=== PATIENT | male | born 1965 | race Caucasian/White ===

== ENCOUNTER 2025-02-14 15:04 | Outpatient (AMB) | payer OTHER, SELFPAY ==
--- NOTE | 2025-02-14 15:10 | HO.NEPHOV_ITS ---
Vital Signs 02/14/25 15:12 Height 5 ft 8 in Weight 199 lb 2 oz BMI 30.3 BP 110/60 Blood Pressure Location Rt brachial Position Sitting Intake Visit Reasons: ENP- HTN/Hyperkalemia-LVM Substation Supervisor Required: No Accompanied by: Self / Same As Patient Allergies No Known Allergies Allergy (Verified 02/14/25 15:12) HPI Comments Details: René is a 60-year-old gentleman with a history hypertension, status post aortic valve replacement on Coumadin, polycythemia, gout, hypothyroidism was seen in the office for history of hypokalemia, renal cyst and renal calculus. He has history of hematuria in the past. He has been having small voided volumes and increased urinary frequency. He has going to see a urologist soon. His renal functions have been normal. He has been on losartan hydrochlorothiazide, metoprolol for his blood pressure but the hydrochlorothiazide was discontinued when he developed hypokalemia. His serum potassium has normalized now. He was initiated on amlodipine which caused dizziness and low blood pressures forcing it to be discontinued. Imaging done during his recent hospitalization showed renal cysts bilaterally which are too small to characterize. He also had a non obstructing left renal calculus. He currently feels well. [facility] Medical History (Updated 02/14/25 @ 15:39 by Billy Madison MD) Rectal fistula Microscopic hematuria Thyroid nodule Goiter Colon polyps Gilbert syndrome Gallbladder polyp Polycythemia Anemia LVH (left ventricular hypertrophy) Smoking hx Aortic stenosis Hypothyroid IGT (impaired glucose tolerance) GERD (gastroesophageal reflux disease) HLD (hyperlipidemia) Hypertension Surgical History History of artificial heart valve Family History (Updated 02/14/25 @ 15:11 by Sydnie Vega MA) Mother Hypertension Diabetes mellitus Social History (Updated 02/14/25 @ 15:10 by Sydnie Vega MA) Alcohol intake: never Patient Tobacco Use Status: Current everyday Tobacco user Review of Systems Const All systems reviewed & are unremarkable except as noted in HPI and below Physical Exam Const General: comfortable and no acute distress Orientation/consciousness: patient oriented x3 HEENT Other: thyroid enlarged Head: Yes normocephalic Mouth: Normal oral and palatal mucosa present Eyes EOM: EOMs intact bilaterally Neck Neck: Yes supple Resp Auscultation: clear to auscultation bilaterally Cardio Jugular venous distension: no JVD Rate: regular rate Heart sounds: Murmur heart sound present GI Palpation (GI): Soft to palpation Auscultation: normal bowel sounds General: Yes no CVA tenderness Back/Spine/Pelvis Back: no CVA tenderness Skin General skin exam: no rashes or lesions noted Neuro General: patient oriented x3 and moves all extremities Extrem General: Yes no pedal edema Assessment & Plan Assessment & Plan (1) Hypertension: Code(s): I10 - Essential (primary) hypertension Category: Medical Qualifiers: Hypertension type: primary hypertension Qualified Code(s): I10 - Essential (primary) hypertension (2) Microscopic hematuria: Code(s): R31.29 - Other microscopic hematuria Category: Medical (3) Renal stone: Code(s): N20.0 - Calculus of kidney Category: Medical (4) Renal cyst: Code(s): N28.1 - Cyst of kidney, acquired Category: Medical Plan René has longstanding hypertension. He has bilateral renal cysts. He denies any family history of PKD. He has been on losartan and hydrochlorothiazide. His serum potassium was low and his HCTZ was discontinued. His serum potassium is normalized. He is not on any potassium replacement. He has renal calculus. I plan to do a 24 hour urine for stone screen and may reintroduce HCTZ and or potassium citrate based on data. He is seeing Urology. He clearly will need follow-up imaging(I am considering doing a renal MRI in the future). All these have been discussed in detail and I answered all his questions. Follow-up appointment given. Orders: Orders Electrolytes 6 Months I10 - Essential (primary) hypertension, N20.0 - Calculus of kidney, N28.1 - Cyst of kidney, acquired, R31.29 - Other microscopic hematuria Blood Urea Nitrogen 6 Months I10 - Essential (primary) hypertension, N20.0 - Calculus of kidney, N28.1 - Cyst of kidney, acquired, R31.29 - Other microscopic hematuria Creatinine 6 Months I10 - Essential (primary) hypertension, N20.0 - Calculus of kidney, N28.1 - Cyst of kidney, acquired, R31.29 - Other microscopic hematuria UA and rflx microscopic 6 Months I10 - Essential (primary) hypertension, N20.0 - Calculus of kidney, N28.1 - Cyst of kidney, acquired, R31.29 - Other microscopic hematuria Protein Creatinine Ratio, Ur 6 Months I10 - Essential (primary) hypertension, N20.0 - Calculus of kidney, N28.1 - Cyst of kidney, acquired, R31.29 - Other microscopic hematuria Coding Level of Care Code New Pt Level 4 (41563) Diagnoses Primary hypertension I10 Hypertension type: primary hypertension Microscopic hematuria R31.29 Renal stone N20.0 Renal cyst N28.1
[2025-02-14 15:12] VITALS: BP 110/60; BMI 30.3
--- OUTSIDE RECORDS SUMMARY | 2025-02-14 16:48 | XMS_ITS | Encounter Summary ---
Author Organization [facility] Address [address] [place] [address] Care Team Providers Care Small Electric Engine Technician Name Role Phone MellyGurmeet hassan Primary Care Provider [phone] Encounter Details Date Type Department Care Team (Latest Contact Info) Description 08/19/2024 Anticoagulation - Warfarin Visit [facility] - [address] [facility] [address] [place] [address] Tin Anderson MD [address] [place] [address] [place] [phone] Presence of prosthetic heart valve (Primary Dx) Social History Tobacco Use Types Packs/Day Years Used Date Smoking Tobacco: Every Day Smokeless Tobacco: Never Alcohol Use Standard Drinks/Week Comments Yes 0 (1 standard drink = 0.6 oz pur e alcohol) Sex and Gender Information Value Date Recorded Sex Assigned at Not on file Legal Sex Male 11:01 AM EST Gender Identity Not on file Sexual Orientation Not on file documented as of this encounter Plan of Treatment Not on file documented as of this encounter Procedures Procedure Name Priority Date/Time Associated Diagnosis Comments PROTHROMBIN TIME WITH INR Routine 08/19/2024 documented in this encounter Results * Prothrombin time with INR (08/19/2024) INR 4.6 Prothrombin Time POC Blood Venous blood specimen / Unknown 08/19/2024 us Historical Provider LAB BLOOD ORDERABLES Kelsie l Result documented in this encounter Visit Diagnoses Diagnosis Presence of prosthetic heart valve- Primary documented in this encounter Care Teams Small Electric Engine Technician Relationship Specialty Start Date End Date Gurmeet Nance DO [address] [place] [phone] PCP - General 01/30/15 documented as of this encounter
--- OUTSIDE RECORDS SUMMARY | 2025-02-14 16:48 | XMS_ITS | Encounter Summary ---
Author Organization [facility] Address [address] [place] [address] Care Team Providers Care Electro Plater Name Role Phone MellyyobanimannyGurmeet decker Primary Care Provider [phone] Encounter Details Date Type Department Care Team (Latest Contact Info) Description 03/16/2024 Anticoagulation - Warfarin Visit [facility] - [address] [facility] [address] [place] [address] Tin Anderson MD [address] [place] [address] [place] [phone] Presence of prosthetic heart valve (Primary Dx) [...] Diagnosis Comments PROTHROMBIN TIME WITH INR Routine 03/16/2024 documented in this encounter Results * Prothrombin time with INR (03/16/2024) INR 1.4 Prothrombin Time POC Blood Venous blood specimen / Unknown 03/16/2024 us Historical Provider LAB BLOOD ORDERABLES Kelsie l Result documented in this encounter Visit Diagnoses Diagnosis Presence of prosthetic heart valve- Primary documented in this encounter Care Teams Electro Plater Relationship Specialty Start Date End Date Gurmeet Nance DO [address] [place] [phone] PCP - General 01/30/15 documented as of this encounter
--- OUTSIDE RECORDS SUMMARY | 2025-02-14 16:48 | XMS_ITS | Encounter Summary ---
Author Organization [facility] Address [address] [place] [address] Care Team Providers Care Search Engine Optimization Manager Name Role Phone Gurmeet Nance DO Primary Care Provider [phone] Encounter Details Date Type Department Care Team (Latest Contact Info) Description 02/13/2025 Anticoagulation - Warfarin Visit [facility] - [address] [place] [phone] Tin Anderson MD [address] [place] [address] [address] [place] [phone] Presence of prosthetic heart valve (Primary Dx) [...] on file documented as of this encounter Progress Notes * Yanick Vargas MA - 02/13/2025 3:40 PM EST Left voice message with instructions documented in this encounter Plan of Treatment Not on file documented as of this encounter Procedures Procedure Name Priority Date/Time Associated Diagnosis Comments PROTHROMBIN TIME WITH INR Routine 02/13/2025 documented in this encounter Results * Prothrombin time with INR (02/13/2025) INR 3.4 Prothrombin Time POC Blood Venous blood specimen / Unknown 02/13/2025 us Historical Provider LAB BLOOD ORDERABLES Kelsie l Result documented in this encounter Visit Diagnoses Diagnosis Presence of prosthetic heart valve- Primary documented in this encounter Care Teams Search Engine Optimization Manager Relationship Specialty Start Date End Date Gurmeet Nance DO [address] [place] [phone] PCP - General 01/30/15 documented as of this encounter
--- OUTSIDE RECORDS SUMMARY | 2025-02-14 16:48 | XMS_ITS | Encounter Summary ---
Author Organization [facility] Address [address] [place] [address] Care Team Providers Care Oyster Worker Name Role Phone MellyGurmeet hassan Primary Care Provider [phone] Encounter Details Date Type Department Care Team (Late st Contact Info) Description 01/26/2025 Lab Requisition [facility] - Main Lab [address] [facility] [place] [address] Ruben Reed [address] [place] [phone] Urinary tract infection, site not specified; Hematuria, unspecified Social History Tobacco Use Types Packs/Day Years [...] Procedure Name Priority Date/Time Associated Diagnosis Comments URINALYSIS WITH REFLEX MICROSCOPIC Routine 01/26/2025 3:50 PM EDT Urinary tract infection, site not specified Hematuria, unspecified URINALYSIS WITH REFLEX MICROSCOPIC Routine 01/26/2025 3:50 PM EDT Urinary tract infection, site not specified Hematuria, unspecified CULTURE URINE Routine 01/26/2025 3:50 PM EDT Urinary tract infection, site not specified Hematuria, unspecified documented in this encounter Results * (ABNORMAL) Urinalysis with reflex microscopic (01/26/2025 3:50 PM EDT) Specific [place] Urine 1.024 1.003 - 1.030 LAB URINALYSIS - AUTOMATED METHOD 01/26/2025 8:55 PM [facility] pH, Urine 5.5 5.0 - 8.0 pH LAB URINALYSIS - AUTOMATED METHOD 01/26/2025 8:55 PM [facility] Leukocytes, Urine Small(A) Negative LAB URINALYSIS - AUTOMATED METHOD 01/26/2025 8:55 PM [facility] Nitrite, Urine Negative Negative LAB URINALYSIS - AUTOMATED METHOD 01/26/2025 8:55 PM [facility] Protein, Urine 30(A) <=Trace mg/dL LAB URINALYSIS - AUTOMATED METHOD 01/26/2025 8:55 PM [facility] Glucose, Urine Negative Negative mg/dL LAB URINALYSIS - AUTOMATED METHOD 01/26/2025 8:55 PM [facility] Ketones, Urine Trace(A) Negative mg/dL LAB URINALYSIS - AUTOMATED METHOD 01/26/2025 8:55 PM [facility] Urobilinogen, Urine 1.0 0.2 - 1.0 mg/dL LAB URINALYSIS - AUTOMATED METHOD 01/26/2025 8:55 PM [facility] Bilirubin, Urine Small(A) Negative LAB URINALYSIS - AUTOMATED METHOD 01/26/2025 8:55 PM [facility] Blood, Urine Negative Negative LAB URINALYSIS - AUTOMATED METHOD 01/26/2025 8:55 PM [facility] RBC, Urine 3.0 0 - 4 /HPF LAB URINALYSIS - AUTOMATED METHOD 01/26/2025 8:55 PM [facility] Comment:Corrected result: Pr eviously reported as 7.3 /HPF on 01/26/2025 at 2054 EDT. WBC, Urine 6.6(H) 0 - 4 /HPF LAB URINALYSIS - AUTOMATED METHOD 01/26/2025 8:55 PM EDT [facility] Squamous Epithelial, Urine 40 0 - 60 /LPF LAB URINALYSIS - AUTOMATED METHOD 01/26/2025 8:55 PM EDT [facility] Crystals, Urine Heavy Amorphous Urate crystals. /LPF LAB URINALYSIS - AUTOMATED METHOD 01/26/2025 8:55 PM EDT [facility] Bacteria, Urine Many(A) Negative /HPF LAB URINALYSIS - AUTOMATED METHOD 01/26/2025 8:55 PM EDT [facility] Hyaline Casts, Urine 4.0(H) 0 - 3 /LPF LAB URINALYSIS - AUTOMATED METHOD 01/26/2025 8:55 PM EDT [facility] Other Casts, Urine 2-5 Coarse Granular casts. /LPF LAB URINALYSIS - AUTOMATED METHOD 01/26/2025 8:55 PM EDT [facility] Urine Urine specimen obtained by clean catch procedure / Unknown 01/26/2025 3:50 PM EDT 01/26/2025 7:38 PM EDT [facility] Edited Resu lt - Final [facility] [address] [place] [address], [place] [phone] * Culture urine (01/26/2025 3:50 PM EDT) Culture, Urine No growth 01/27/2025 1:38 PM EDT [facility] Urine Urine specimen obtained by clean catch procedure / Unknown 01/26/2025 3:50 PM EDT 01/26/2025 7:38 PM EDT Ruben Sanchez LAB MICROBIOLOGY - GENERAL ORDER PATRICIA Final Result [facility] [address] [place] [address], documented in this encounter Visit Diagnoses Diagnosis Urinary tract infection, site not specified Hematuria, unspecified documented in this encounter Care Teams Oyster Worker Relationship Specialty Start Date End Date Gurmeet Nance DO [address] [place] [phone] PCP - General 01/30/15 documented as of this encounter
--- OUTSIDE RECORDS SUMMARY | 2025-02-14 16:48 | XMS_ITS | Clinical Summary ---
Author Organization [address] [facility] Address [address] [place] [address] Phone Care Team Providers Care Time Clock Mechanic Name Role Phone Gurmeet Nance DO Primary Care Provider [phone] Medications metoprolol succinate (TOPROL-XL) 100 mg 24 hr tablet TAKE 1 TABLET BY MOUTH EVERY DAY 90 tablet 3 5 Active warfarin (COUMADIN) 2.5 mg tablet Take 1 tablet daily as directed by pvca. 90 each 3 5 Active warfarin (COUMADIN) 5 mg tablet Take 1 tablet (5 mg total) by mouth 1 (one) time each day with dinner. 90 tablet 1 5 Active enoxaparin (Lovenox) 100 mg/mL syringe Inject 1 mL (100 mg total) under the skin every 12 (twelve) hours. 10 each 1 5 Active enoxaparin (Lovenox) 100 mg/mL syringe Inject 1 mL (100 mg total) under the skin every 12 (twelve) hours. 10 each 1 5 01/17/20 25 Discontinu ed(Reorder ) Active Problems Problem Noted Date Diagnosed Date Presence of prosthetic heart valve 02/23/2024 Encounters Date Type Department Care Team Description 02/13/2025 Anticoagulation - Warfarin Visit [facility]iology [facility] [address] [phone] Tin Anderson MD Presence of prosthetic heart valve (Primary Dx) 02/06/2025 Anticoagulation - Warfarin Visit [facility]iology [facility] 101 300 [facility] 101 [place] [phone] Tin Anderson MD Presence of prosthetic heart valve (Primary Dx) 02/03/2025 Anticoagulation - Warfarin Visit [facility] [address] [place] [address] Tin Anderson MD Presence of prosthetic heart valve (Primary Dx) 01/31/2025 Anticoagulation - Warfarin Visit [facility] [address] [place] [phone] Tin Anderson MD Presence of prosthetic heart valve (Primary Dx) 01/26/2025 Lab Requisition [facility] 299 [facility] [place] [phone] Ruben Reed Urinary tract infection, site not specified; Hematuria, unspecified 01/25/2025 Anticoagulation - Warfarin Visit [facility] [address] [place] [phone] Tin Anderson MD Presence of prosthetic heart valve (Primary Dx) 01/23/2025 Anticoagulation - Warfarin Visit [facility] [address] [place] [phone] Tin Anderson MD Presence of prosthetic heart valve (Primary Dx) 01/19/2025 Anticoagulation - Warfarin Visit [facility] [address] [place] [phone] Tin Anderson MD Presence of prosthetic heart valve (Primary Dx) 01/17/2025 Anticoagulation - Warfarin Visit [facility] [address] [place] [phone] Tin Anderson MD Presence of prosthetic heart valve (Primary Dx) 01/16/2025 Telephone [facility] [address] [place] [address] Tin Anderson MD 01/12/2025 Anticoagulation - Warfarin Visit [facility] [address] [phone] Tin Anderson MD Presence of prosthetic heart valve (Primary Dx) 01/10/2025 Results Follow-Up [facility] [address] [phone] Tin Anderson MD 01/09/2025 Anticoagulation - Warfarin Visit [facility] [address] [phone] Tin Anderson MD Presence of prosthetic heart valve (Primary Dx) 01/02/2025 Anticoagulation - Warfarin Visit [facility] [place] [address] [phone] Tin Anderson MD Presence of prosthetic heart valve (Primary Dx) 12/29/2024 Anticoagulation - Warfarin Visit [facility] [address] [phone] Tin Anderson MD Presence of prosthetic heart valve (Primary Dx) 12/26/2024 Anticoagulation - Warfarin Visit [facility] [place] [address] [phone] Tin Anderson MD Presence of prosthetic heart valve (Primary Dx) 12/22/2024 Anticoagulation - Warfarin Visit [facility] [address] [phone] Tin Anderson MD Presence of prosthetic heart valve (Primary Dx) 12/19/2024 Anticoagulation - Warfarin Visit [place] [phone] [phone] Tin Anderson MD Presence of prosthetic heart valve (Primary Dx) 12/16/2024 Anticoagulation - Warfarin Visit [facility] [place] [address] [phone] Tin Anderson MD Presence of prosthetic heart valve (Primary Dx) 12/14/2024 Anticoagulation - Warfarin Visit [facility] [address] [place] [address] Tin Anderson MD Presence of prosthetic heart valve (Primary Dx) 12/09/2024 Anticoagulation - Warfarin Visit [facility] [address] [place] [address] Tin Anderson MD Presence of prosthetic heart valve (Primary Dx) 12/09/2024 Lab [facility] [address] [place] [address] Tin Anderson MD Presence of prosthetic heart valve 12/06/2024 10:35 AM EDT Lab Draw Station - [address] [phone] Presence of prosthetic heart valve 12/06/2024 Anticoagulation - Warfarin Visit [facility] [address] [place] [phone] Tin Anderson MD Presence of prosthetic heart valve (Primary Dx) 12/02/2024 Anticoagulation - Warfarin Visit [facility] [address] [place] [address] Tin Anderson MD Presence of prosthetic heart valve (Primary Dx) 12/02/2024 Lab [facility] [address] [place] [address] Tin Anderson MD Presence of prosthetic heart valve 11/25/2024 Lab [facility] [address] [place] [address] Tin Anderson MD Presence of prosthetic heart valve 11/24/2024 Anticoagulation - Warfarin Visit [facility] [address] [place] [address] Tin Anderson MD Presence of prosthetic heart valve (Primary Dx) 11/18/2024 Anticoagulation - Warfarin Visit [facility] Cardiology [facility] [address] [place] [address] Tin Anderson MD Presence of prosthetic heart valve (Primary Dx) 11/18/2024 Lab [facility]iology [facility] [address] [place] [address] Tin Anderson MD Presence of prosthetic heart valve from Last 3 Months Surgical History Surgery Date Site/Laterality Comments TONSILLECTOMY PROCEDURE: HISTORICAL TONSILLECTOMY Medical History Medical History Date Comments Unspecified essential hypertension DX:Unspecified essential hypertension Essential hypertension, benign 05/11/2008 D X:Essential hypertension, benign Family History Medical History Relation Name Comments Hypertension Father Other cancer Maternal Grandmother Other: aortic valve replacement Mother Blindness Neg Hx Cataracts Neg Hx Glaucoma Neg Hx Macular degeneration Neg Hx Strabismus Neg Hx Relation Name Status Comments Father Maternal Grandmother Mother Social History Tobacco Use Types Packs/Day Years Used Date Smoking Tobacco: Every Day Smokeless Tobacco: Never Alcohol Use Standard Drinks/Week Comments Yes 0 (1 standard drink = 0.6 oz pur e alcohol) Sex and Gender Information Value Date Recorded Sex Assigned at Not on file Legal Sex Male 11:01 AM EST Gender Identity Not on file Sexual Orientation Not on file Obstetrics History Last Filed Vital Signs Vital Sign Reading Time Taken Comments Blood Pressure 120/90 08/18/2024 9:47 AM EDT Pulse 61 10/06/2023 3:55 PM EDT Temperature - - Respiratory Rate - - Oxygen Saturation - - Inhaled Oxygen Concentration - - Weight 99.3 kg (219 lb) 08/18/2024 9:47 AM EDT Height 175.3 cm (5' 9 ) 08/18/2024 9:47 AM EDT Body Mass Index 32.34 08/18/2024 9:47 AM EDT Plan of Treatment Health Maintenance Due Date Last Done Comments Colorectal Cancer Screening: Colonoscopy 1967 Hepatitis A Vaccines (1 of 2 - Risk 2-dose series) 1986 Hepatitis B Vaccines (1 of 3 - 19+ 3-dose series) 1986 DTaP,Tdap,and Td Vaccines (2 - Td or Tdap) 09/05/2015 09/04/2005 RSV Immunization Adult Patients (1 - Risk 50-74 years 1-dose series) 2017 Zoster Vaccines (1 of 2) 2017 Pneumococcal Vaccine: 50+ Years (2 of 2 - PCV) 06/21/2017 06/21/2016 HIV Screening 03/15/2022 Hepatitis C Screening 03/15/2022 Social Influencers of Health Screening 03/15/2022 Depression Screening 04/06/2024 COVID-19 Vaccine (3 - 2024-2 6 season) 2024 07/26/2020, 07/05/2020 Influenza Vaccine (#1) 2024 02/21/2023 Hypertension/CHF/CAD Annual BMP Blood Test 11/24/2025 11/24/2024, 04/08/2024 Cholesterol Screening (Lipid Panel) 11/24/2029 11/24/2024 HIB Vaccines Aged Out No longer eligi ble based on patient's age to complete this topic HPV Vaccines Aged Out No longer eligi ble based on patient's age to complete this topic IPV Vaccines Aged Out No longer eligi ble based on patient's age to complete this topic MMR Vaccines Aged Out No longer eligi ble based on patient's age to complete this topic Meningococcal ACWY Vaccine Aged Out N o longer eligible based on patient's age to complete this topic Meningococcal B Vaccine Aged Out No l onger eligible based on patient's age to complete this topic RSV Immunization Patients Under 20 months Aged Out No longer eligible b ased on patient's age to complete this topic Varicella Vaccines Aged Out No longer eligible based on patient's age to complete this topic Procedures Procedure Name Priority Date/Time Associated Diagnosis Comments PROTHROMBIN TIME WITH INR Routine 02/13/2025 PROTHROMBIN TIME WITH INR Routine 02/06/2025 PROTHROMBIN TIME WITH INR Routine 02/03/2025 PROTHROMBIN TIME WITH INR Routine 01/31/2025 URINALYSIS WITH REFLEX MICROSCOPIC Routine 01/26/2025 3:50 PM EDT Urinary tract infection, site not specified Hematuria, unspecified URINALYSIS WITH REFLEX MICROSCOPIC Routine 01/26/2025 3:50 PM EDT Urinary tract infection, site not specified Hematuria, unspecified CULTURE URINE Routine 01/26/2025 3:50 PM EDT Urinary tract infection, site not specified Hematuria, unspecified PROTHROMBIN TIME WITH INR Routine 01/25/2025 PROTHROMBIN TIME WITH INR Routine 01/23/2025 PROTHROMBIN TIME WITH INR Routine 01/19/2025 9:28 AM EDT Presence of prosthetic heart valve PROTHROMBIN TIME WITH INR Routine 01/17/2025 9:49 AM EDT Presence of prosthetic heart valve MAGNESIUM Routine 01/12/2025 10:01 AM EDT Low magnesium level Low TSH level THYROID STIMULATING HORMONE Routine 01/12/2025 10:01 AM EDT Low magnesium level Low TSH level PROTHROMBIN TIME WITH INR Routine 01/12/2025 10:01 AM EDT Presence of prosthetic heart valve CALCIUM Routine 01/09/2025 10:03 AM EDT Low magnesium level Low calcium levels Low serum thyroid stimulating hormone (TSH) Microscopic hematuria CALCIUM, IONIZED Routine 01/09/2025 10:0 3 AM EDT Low magnesium level Low calcium levels Low serum thyroid stimulating hormone (TSH) Microscopic hematuria MAGNESIUM Routine 01/09/2025 10:03 AM EDT Low magnesium level Low calcium levels Low serum thyroid stimulating hormone (TSH) Microscopic hematuria THYROID STIMULATING HORMONE Routine 01/09/2025 10:03 AM EDT Low magnesium level Low calcium levels Low serum thyroid stimulating hormone (TSH) Microscopic hematuria PROTHROMBIN TIME WITH INR Routine 01/09/2025 10:03 AM EDT Presence of prosthetic heart valve PROTHROMBIN TIME WITH INR Routine 01/06/2025 1:21 PM EDT Presence of prosthetic heart valve PROTHROMBIN TIME WITH INR Routine 01/02/2025 PROTHROMBIN TIME WITH INR Routine 12/29/2024 PROTHROMBIN TIME WITH INR Routine 12/26/2024 PROTHROMBIN TIME WITH INR Routine 12/22/2024 PROTHROMBIN TIME WITH INR Routine 12/19/2024 PROTHROMBIN TIME WITH INR Routine 12/16/2024 PROTHROMBIN TIME WITH INR Routine 12/14/2024 PROTHROMBIN TIME WITH INR Routine 12/09/2024 PROTHROMBIN TIME WITH INR Routine 12/06/2024 10:35 AM EDT Presence of prosthetic heart valve PROTHROMBIN TIME WITH INR Routine 12/02/2024 CULTURE URINE Routine 11/24/2024 2:46 PM EDT Laboratory tests ordered as part of a complete physical exam (CPE) Hypomagnesemia Hypocalcemia Microscopic hematuria Goiter Gout Polycythemia, secondary HTN (hypertension) HLD (hyperlipidemia) Smoker Gilbert's syndrome URINALYSIS WITH REFLEX MICROSCOPIC Routine 11/24/2024 2:44 PM EDT Laboratory tests ordered as part of a complete physical exam (CPE) Hypomagnesemia Hypocalcemia Microscopic hematuria Goiter Gout Polycythemia, secondary HTN (hypertension) HLD (hyperlipidemia) Smoker Gilbert's syndrome CBC WITH AUTO DIFFERENTIAL Routine 11/24/2024 2:44 PM EDT Laboratory tests ordered as part of a complete physical exam (CPE) Hypomagnesemia Hypocalcemia Microscopic hematuria Goiter Gout Polycythemia, secondary HTN (hypertension) HLD (hyperlipidemia) Smoker Gilbert's syndrome VITAMIN B12 Routine 11/24/2024 2:44 PM EDT Laboratory tests ordered as part of a complete physical exam (CPE) Hypomagnesemia Hypocalcemia Microscopic hematuria Goiter Gout Polycythemia, secondary HTN (hypertension) HLD (hyperlipidemia) Smoker Gilbert's syndrome MAGNESIUM Routine 11/24/2024 2:44 PM EDT Laboratory tests ordered as part of a complete physical exam (CPE) Hypomagnesemia Hypocalcemia Microscopic hematuria Goiter Gout Polycythemia, secondary HTN (hypertension) HLD (hyperlipidemia) Smoker Gilbert's syndrome VITAMIN D 25 HYDROXY Routine 11/24/2024 2:44 PM EDT Laboratory tests ordered as part of a complete physical exam (CPE) Hypomagnesemia Hypocalcemia Microscopic hematuria Goiter Gout Polycythemia, secondary HTN (hypertension) HLD (hyperlipidemia) Smoker Gilbert's syndrome URINALYSIS WITH REFLEX MICROSCOPIC Routine 11/24/2024 2:44 PM EDT Laboratory tests ordered as part of a complete physical exam (CPE) Hypomagnesemia Hypocalcemia Microscopic hematuria Goiter Gout Polycythemia, secondary HTN (hypertension) HLD (hyperlipidemia) Smoker Gilbert's syndrome HEMOGLOBIN A1C Routine 11/24/2024 2:44 PM EDT Laboratory tests ordered as part of a complete physical exam (CPE) Hypomagnesemia Hypocalcemia Microscopic hematuria Goiter Gout Polycythemia, secondary HTN (hypertension) HLD (hyperlipidemia) Smoker Gilbert's syndrome HEPATIC FUNCTION PANEL Routine 11/24/2024 2:44 PM EDT Laboratory tests ordered as part of a complete physical exam (CPE) Hypomagnesemia Hypocalcemia Microscopic hematuria Goiter Gout Polycythemia, secondary HTN (hypertension) HLD (hyperlipidemia) Smoker Gilbert's syndrome URIC ACID Routine 11/24/2024 2:44 PM EDT Laboratory tests ordered as part of a complete physical exam (CPE) Hypomagnesemia Hypocalcemia Microscopic hematuria Goiter Gout Polycythemia, secondary HTN (hypertension) HLD (hyperlipidemia) Smoker Gilbert's syndrome CBC AND DIFFERENTIAL Routine 11/24/2024 2:44 PM EDT Laboratory tests ordered as part of a complete physical exam (CPE) Hypomagnesemia Hypocalcemia Microscopic hematuria Goiter Gout Polycythemia, secondary HTN (hypertension) HLD (hyperlipidemia) Smoker Gilbert's syndrome THYROID STIMULATING HORMONE Routine 11/24/2024 2:44 PM EDT Laboratory tests ordered as part of a complete physical exam (CPE) Hypomagnesemia Hypocalcemia Microscopic hematuria Goiter Gout Polycythemia, secondary HTN (hypertension) HLD (hyperlipidemia) Smoker Gilbert's syndrome PROSTATE SPECIFIC ANTIGEN SCREEN Routine 11/24/2024 2:44 PM EDT Laboratory tests ordered as part of a complete physical exam (CPE) Hypomagnesemia Hypocalcemia Microscopic hematuria Goiter Gout Polycythemia, secondary HTN (hypertension) HLD (hyperlipidemia) Smoker Gilbert's syndrome BASIC METABOLIC PANEL Routine 11/24/2024 2:44 PM EDT Laboratory tests ordered as part of a complete physical exam (CPE) Hypomagnesemia Hypocalcemia Microscopic hematuria Goiter Gout Polycythemia, secondary HTN (hypertension) HLD (hyperlipidemia) Smoker Gilbert's syndrome LIPID PANEL WITH REFLEX TO DIRECT LDL Routine 11/24/2024 2:44 PM EDT Laboratory tests ordered as part of a complete physical exam (CPE) Hypomagnesemia Hypocalcemia Microscopic hematuria Goiter Gout Polycythemia, secondary HTN (hypertension) HLD (hyperlipidemia) Smoker Gilbert's syndrome PROTHROMBIN TIME WITH INR Routine 11/24/2024 2:44 PM EDT Presence of prosthetic heart valve PROTHROMBIN TIME WITH INR Routine 11/24/2024 PROTHROMBIN TIME WITH INR Routine 11/21/2024 PROTHROMBIN TIME WITH INR Routine 11/18/2024 from Last 3 Months Results * Prothrombin time with INR (02/13/2025) Only the most recent of25 resultswithin the time period is included. [facility] INR 3.4 Prothrombin Time POC Blood Venous blood specimen / Unknown 02/13/2025 us Historical Provider MD LAB BLOOD ORDERABLES Kelsie l Result * (ABNORMAL) Urinalysis with reflex microscopic (01/26/2025 3:50 PM EDT) Only the most recent of2 resultswithin the time period is included. [facility] Specific [place] Urine 1.024 1.003 - 1.030 LAB URINALYSIS - AUTOMATED METHOD 01/26/2025 8:55 PM [facility] pH, Urine 5.5 5.0 - 8.0 pH LAB URINALYSIS - AUTOMATED METHOD 01/26/2025 8:55 PM [facility] Leukocytes, Urine Small(A) Negative LAB URINALYSIS - AUTOMATED METHOD 01/26/2025 8:55 PM [facility] Nitrite, Urine Negative Negative LAB URINALYSIS - AUTOMATED METHOD 01/26/2025 8:55 PM [facility] Protein, Urine 30(A) <=Trace mg/dL LAB URINALYSIS - AUTOMATED METHOD 01/26/2025 8:55 PM [facility] Glucose, Urine Negative Negative mg/dL LAB URINALYSIS - AUTOMATED METHOD 01/26/2025 8:55 PM [facility] Ketones, Urine Trace(A) Negative mg/dL LAB URINALYSIS - AUTOMATED METHOD 01/26/2025 8:55 PM [facility] Urobilinogen, Urine 1.0 0.2 - 1.0 mg/dL LAB URINALYSIS - AUTOMATED METHOD 01/26/2025 8:55 PM [facility] Bilirubin, Urine Small(A) Negative LAB URINALYSIS - AUTOMATED METHOD 01/26/2025 8:55 PM [facility] Blood, Urine Negative Negative LAB URINALYSIS - AUTOMATED METHOD 01/26/2025 8:55 PM EDT [facility] RBC, Urine 3.0 0 - 4 /HPF LAB URINALYSIS - AUTOMATED METHOD 01/26/2025 8:55 PM EDT [facility] Comment:Corrected result: Pr eviously reported as 7.3 /HPF on 01/26/2025 at 2054 EDT. WBC, Urine 6.6(H) 0 - 4 /HPF LAB URINALYSIS - AUTOMATED METHOD 01/26/2025 8:55 PM EDT [facility] Squamous Epithelial, Urine 40 0 - 60 /LPF LAB URINALYSIS - AUTOMATED METHOD 01/26/2025 8:55 PM EDT [facility] Crystals, Urine Heavy Amorphous Urate crystals. /LPF LAB URINALYSIS - AUTOMATED METHOD 01/26/2025 8:55 PM EDT [facility] Bacteria, Urine Many(A) Negative /HPF LAB URINALYSIS - AUTOMATED METHOD 01/26/2025 8:55 PM EDT [facility] Hyaline Casts, Urine 4.0(H) 0 - 3 /LPF LAB URINALYSIS - AUTOMATED METHOD 01/26/2025 8:55 PM EDT [facility] Other Casts, Urine 2-5 Coarse Granular casts. /LPF LAB URINALYSIS - AUTOMATED METHOD 01/26/2025 8:55 PM EDT [facility] Urine Urine specimen obtained by clean catch procedure / Unknown 01/26/2025 3:50 PM EDT 01/26/2025 7:38 PM EDT us Ruben Reed LAB URINE ORDERABLES Edited Resu lt - Final [facility] [address] [place] [address], * Culture urine (01/26/2025 3:50 PM EDT) Only the most recent of2 resultswithin the time period is included. Culture, Urine No growth 01/27/2025 1:38 PM EDT [facility] Urine Urine specimen obtained by clean catch procedure / Unknown 01/26/2025 3:50 PM EDT 01/26/2025 7:38 PM EDT [facility] LAB MICROBIOLOGY - GENERAL ORDER PATRICIA Final Result Performing Organization Address City/[facility]/ZIP Co de Phone Number [facility] [address] [place] [address], [place] [phone] * Thyroid stimulating hormone (01/12/2025 10:01 AM EDT) Only the most recent of3 resultswithin the time period is included. TSH 1.58 0.40 - 4.00 mcIU/mL LAB CHEMISTRY METHOD 01/12/2025 2:51 PM EDT [facility] Blood Venous blood specimen / Unknown Venipuncture / Unknown 01/12/2025 10:01 AM EDT 01/12/2025 10:01 AM EDT [facility] BLOOD ORDERABLES Final Resul t Performing Organization Address City/[facility]/ZIP Co de Phone Number [facility] [address] [place] [address], [place] [phone] * (ABNORMAL) Magnesium (01/12/2025 10:01 AM EDT) Only the most recent of3 resultswithin the time period is included. Magnesium 1.7(L) 1.9 - 2.6 mg/dL LAB CHEMISTRY METHOD 01/12/2025 2:27 PM EDT [facility] Blood Venous blood specimen / Unknown Venipuncture / Unknown 01/12/2025 10:01 AM EDT 01/12/2025 10:01 AM EDT [facility] BLOOD ORDERABLES Final Resul t [facility] [address] [place] [address], [place] [phone] * Calcium, ionized (01/09/2025 10:03 AM EDT) Calcium Ionized 5.1 4.6 - 5.4 mg/dL 01/11/2025 11:17 AM EDT [facility] Comment: Test performed at [facility], [address], [place] [address] Sujata Griffith MD, PhD - Assistant Principal Blood Venous blood specimen / Unknown Venipuncture / Unknown 01/09/2025 10:03 AM EDT 01/09/2025 10:03 AM EDT [facility] BLOOD ORDERABLES Final Resul t [facility] [address] [place] [address] * Calcium (01/09/2025 10:03 AM EDT) Pathologist [facility] Calcium 9.1 8.5 - 10.5 mg/dL LAB CHEMISTRY METHOD 01/09/2025 11:55 AM EDT [facility] Blood Venous blood specimen / Unknown Venipuncture / Unknown 01/09/2025 10:03 AM EDT 01/09/2025 10:03 AM EDT [facility] LAB BLOOD ORDERABLES Final Resul t [facility] [address] [place] [address], [place] [phone] * Prostate specific antigen screen (11/24/2024 2:44 PM EDT) PSA 1.06 0.00 - 4.00 ng/mL LAB CHEMISTRY METHOD 11/24/2024 8:26 PM EDT [facility] Blood Venous blood specimen / Unknown Venipuncture / Unknown 11/24/2024 2:44 PM EDT 11/24/2024 2:44 PM EDT Narrative [facility] - 11/24/2024 8:26 PM EDT The Siemens Advia Centaur Chemiluminescent Immunoassay is used. Results obtained with different assay methods or kits cannot be used interchangeably. Results cannot be interpreted as absolute evidence of the presence or absence of malignant disease. us Ruben Reed LAB BLOOD ORDERABLES Final Resul t [facility] [address] [place] [address], [place] [phone] * Lipid panel with reflex to direct LDL (11/24/2024 2:44 PM EDT) Cholesterol 146 0 - 200 mg/dL LAB CHEMISTRY METHOD 11/24/2024 8:13 PM EDT [facility] Triglycerides 122 0 - 150 mg/dL LAB CHEMISTRY METHOD 11/24/2024 8:13 PM T [facility] HDL 59 >=40 mg/dL LAB CHEMISTRY METHOD 11/24/2024 8:13 PM EDT [facility] LDL Calculated 63 0 - 100 mg/dL LAB CHEMISTRY METHOD 11/24/2024 8:13 PM EDT [facility] Comment:Estimated LDL Calcul ated using equation: Total cholesterol - HDL cholesterol - (Triglycerides/5) VLDL Cholesterol Alexis 24.4 mg/dL LAB CHEMISTRY METHOD 11/24/2024 8:13 PM EDT [facility] Non HDL Chol. (LDL+VLDL) 87 <145 mg/dL LAB CHEMISTRY METHOD 11/24/2024 8:13 PM EDT [facility] Chol/HDL Ratio 2.5 0.0 - 4.4 LAB CHEMISTRY METHOD 11/24/2024 8:13 PM EDT [facility] Blood Venous blood specimen / Unknown Venipuncture / Unknown 11/24/2024 2:44 PM EDT 11/24/2024 2:44 PM EDT us Ruben Omidgurjitnura LAB BLOOD ORDERABLES Final Resul t [facility] [address] [place] [address], * (ABNORMAL) CBC auto differential (11/24/2024 2:44 PM EDT) WBC 6.1 4.8 - 10.8 K/mcL LAB HEMETOLOGY METHOD 11/24/2024 7:43 PM EDT [facility] RBC 5.20 4.50 - 5.50 M/mcL LAB HEMETOLOGY METHOD 11/24/2024 7:43 PM EDT [facility] Hemoglobin 19.2(H) 13.5 - 17.5 g/dL LAB HEMETOLOGY METHOD 11/24/2024 7:43 PM EDT [facility] Hematocrit 55.9(H) 42.0 - 54.0 % LAB HEMETOLOGY METHOD 11/24/2024 7:43 PM EDT [facility] MCV 108.5(H) 79.0 - 98.0 FL LAB HEMETOLOGY METHOD 11/24/2024 7:43 PM EDT [facility] MCH 37.3(H) 27.0 - 32.0 pcg LAB HEMETOLOGY METHOD 11/24/2024 7:43 PM EDT [facility] MCHC 34.3 32.0 - 37.0 g/dL LAB HEMETOLOGY METHOD 11/24/2024 7:43 PM EDT [facility] RDW 14.6 11.0 - 15.0 % LAB HEMETOLOGY METHOD 11/24/2024 7:43 PM EDT [facility] Platelets 186 130 - 400 K/mcL LAB HEMETOLOGY METHOD 11/24/2024 7:43 PM EDT [facility] MPV 10.2 7.0 - 11.0 FL LAB HEMETOLOGY METHOD 11/24/2024 7:43 [facility] NRBC 0.0 <1.0 % LAB HEMETOLOGY METHOD 11/24/2024 7:43 PM EDT [facility] NRBC Absolute 0.00 <0.10 K/mcL LAB HEMETOLOGY METHOD 11/24/2024 7:43 PM [facility] Neutrophils Relative 66.7 % LAB HEMETOLOGY METHOD 11/24/2024 7:43 PM [facility] Lymphocytes Relative 23.2 % LAB HEMETOLOGY METHOD 11/24/2024 7:43 PM [facility] Monocytes Relative 7.7 % LAB HEMETOLOGY METHOD 11/24/2024 7:43 PM [facility] Eosinophils Relative 1.5 % LAB HEMETOLOGY METHOD 11/24/2024 7:43 PM [facility] Basophils Relative 0.7 % LAB HEMETOLOGY METHOD 11/24/2024 7:43 PM [facility] Immature Granulocytes Relative 0.2 % LAB HEMETOLOGY METHOD 11/24/2024 7:43 PM [facility] Neutrophils Absolute 4.08 1.50 - 7.00 K/mcL LAB HEMETOLOGY METHOD 11/24/2024 7:43 PM [facility] Lymphocytes Absolute 1.42 1.00 - 5.00 K/mcL LAB HEMETOLOGY METHOD 11/24/2024 7:43 PM [facility] Monocytes Absolute 0.47 0.20 - 1.00 K/mcL LAB HEMETOLOGY METHOD 11/24/2024 7:43 PM EDT [facility] Eosinophils Absolute 0.09 0.00 - 0.50 K/[facility] LAB HEMETOLOGY METHOD 11/24/2024 7:43 PM EDT [facility] Basophils Absolute 0.04 0.00 - 0.20 K/[facility] LAB HEMETOLOGY METHOD 11/24/2024 7:43 PM EDT [facility] Immature Granulocytes Absolute 0.01 0.00 - 0.03 K/[facility] LAB HEMETOLOGY METHOD 11/24/2024 7:43 PM EDT [facility] Blood Venous blood specimen / Unknown Venipuncture / Unknown 11/24/2024 2:44 PM EDT 11/24/2024 2:44 PM EDT Ruben Reed LAB BLOOD ORDERABLES Final Resul t Performing Organization Address City/[facility]/ZIP Co de Phone Number [facility] [address] [place] [address], [place] [phone] * Vitamin D 25 hydroxy (11/24/2024 2:44 PM EDT) [facility] Vit D, 25-Hydroxy 35.4 30.0 - 80.0 ng/mL LAB CHEMISTRY METHOD 11/24/2024 8:06 PM EDT [facility] Blood Venous blood specimen / Unknown Venipuncture / Unknown 11/24/2024 2:44 PM EDT 11/24/2024 2:44 PM EDT Ruben Reed LAB BLOOD ORDERABLES Final Resul t [facility] [address] [place] [address], [place] [phone] * Uric acid (11/24/2024 2:44 PM EDT) [facility] Uric Acid 5.0 3.7 - 9.2 mg/dL LAB CHEMISTRY METHOD 11/24/2024 7:53 PM EDT [facility] Blood Venous blood specimen / Unknown Venipuncture / Unknown 11/24/2024 2:44 PM EDT 11/24/2024 2:44 PM EDT [facility] LAB BLOOD ORDERABLES Final Resul t Performing Organization Address [facility] Co de Phone Number [facility] [address] [place] [address], [place] [phone] * Hemoglobin A1c (11/24/2024 2:44 PM EDT) [facility] Hemoglobin A1C 5.2 <6.5 % LAB CHEMISTRY METHOD 11/24/2024 11:14 PM EDT [facility] Mean Bld Glu Estim. 103 mg/dL LAB CHEMISTRY METHOD 11/24/2024 11:14 PM EDT [facility] Blood Venous blood specimen / Unknown Venipuncture / Unknown 11/24/2024 2:44 PM EDT 11/24/2024 2:44 PM EDT [facility] LAB BLOOD ORDERABLES Final Resul t Performing Organization Address [facility] Co de Phone Number [facility] [address] [place] [address], [place] [phone] * Vitamin B12 (11/24/2024 2:44 PM EDT) Pathologist [facility] Vitamin B-12 480 250 - 900 pcg/mL LAB CHEMISTRY METHOD 11/24/2024 8:13 PM EDT [facility] Blood Venous blood specimen / Unknown Venipuncture / Unknown 11/24/2024 2:44 PM EDT 11/24/2024 2:44 PM EDT [facility] LAB BLOOD ORDERABLES Final Resul t Performing Organization Address City/[facility]/ZIP Co de Phone Number [facility] [address] [place] [address], [place] [phone] * (ABNORMAL) Hepatic function panel (11/24/2024 2:44 PM EDT) Total Protein 7.3 6.0 - 8.0 g/dL LAB CHEMISTRY METHOD 11/24/2024 7:53 PM EDT [facility] Albumin 3.2 3.2 - 5.0 g/dL LAB CHEMISTRY METHOD 11/24/2024 7:53 PM EDT [facility] Total Bilirubin 1.7(H) 0.0 - 1.4 mg/dL LAB CHEMISTRY METHOD 11/24/2024 7:53 PM EDT [facility] Bilirubin, Direct 0.5(H) 0.0 - 0.3 mg/dL LAB CHEMISTRY METHOD 11/24/2024 7:53 PM EDT [facility] Bilirubin, Indirect 1.2(H) 0.0 - 1.1 mg/dL LAB CHEMISTRY METHOD 11/24/2024 7:53 PM EDT [facility] ALT (SGPT) 22 10 - 60 unit/L LAB CHEMISTRY METHOD 11/24/2024 7:53 PM EDT [facility] AST (SGOT) 55(H) 10 - 42 unit/L LAB CHEMISTRY METHOD 11/24/2024 7:53 PM EDT [facility] Alkaline Phosphatase 79 42 - 121 unit/L LAB CHEMISTRY METHOD 11/24/2024 7:53 PM EDT [facility] Blood Venous blood specimen / Unknown Venipuncture / Unknown 11/24/2024 2:44 PM EDT 11/24/2024 2:44 PM EDT Ruben Reed LAB BLOOD ORDERABLES Final Resul t [facility] [address] [place] [address], [place] [phone] * (ABNORMAL) Basic metabolic panel (11/24/2024 2:44 PM EDT) Sodium 139 133 - 145 mmol/L LAB CHEMISTRY METHOD 11/24/2024 7:53 PM [facility] Potassium 3.5 3.5 - 5.5 mmol/L LAB CHEMISTRY METHOD 11/24/2024 7:53 PM [facility] Chloride 100 96 - 110 mmol/L LAB CHEMISTRY METHOD 11/24/2024 7:53 PM [facility] CO2 36(H) 21 - 32 mmol/L LAB CHEMISTRY METHOD 11/24/2024 7:53 PM [facility] Anion Gap 3 3 - 11 LAB CHEMISTRY METHOD 11/24/2024 7:53 PM [facility] Glucose 88 70 - 100 mg/dL LAB CHEMISTRY METHOD 11/24/2024 7:53 PM [facility] BUN 5 5 - 25 mg/dL LAB CHEMISTRY METHOD 11/24/2024 7:53 PM [facility] Creatinine 0.86 0.70 - 1.30 mg/dL LAB CHEMISTRY METHOD 11/24/2024 7:53 PM [facility] eGFR 101 >=60 mL/min/1. 73m2 LAB CHEMISTRY METHOD 11/24/2024 7:53 PM [facility] Comment:Calculation based on the Chronic Kidney Disease Epidemiology Collaboration (CKD-EPI) equation refit without adjustment for race. BUN/Creatinine Ratio 5.8 LAB CHEMISTRY METHOD 11/24/2024 7:53 PM [facility] Calcium 8.3(L) 8.5 - 10.5 mg/dL LAB CHEMISTRY METHOD 11/24/2024 7:53 PM [facility] Blood Venous blood specimen / Unknown Venipuncture / Unknown 11/24/2024 2:44 PM EDT 11/24/2024 2:44 PM EDT us Ruben Reed LAB BLOOD ORDERABLES Final Resul t VIKTORIA DEE MA ([facility]) [facility] [address] [place] [address], [place] [phone] from Last 3 Months Insurance [facility] Care Teams Time Clock Mechanic Relationship Specialty Start Date End Date Gurmeet Nance DO [address] [place] [id number] PCP - General 01/30/15
== END 2025-02-14 15:42 | disposition home or self-care (01) ==
PROVIDERS: PCP Internal Medicine; Visit Provider Internal Medicine Nephrology
DX: I10 Essential (primary) hypertension (principal); R31.29 Other microscopic hematuria; N20.0 Calculus of kidney; N28.1 Cyst of kidney, acquired
CPT/HCPCS: 99204